=== PATIENT | male | born 1955 | race Caucasian/White ===

== ENCOUNTER 2016-09-19 08:41 | Emergency (ER) | payer OTHER ==
[2016-12-21] MEDS ORDERED: ASPIRIN CHEWABL81 MG PO (08:30)
[2016-12-21] MEDS ORDERED: VITAMIN D250000 UNIT PO (08:30)
[2016-12-21] MEDS ORDERED: MOBIC15 MG PO (08:31)
[2016-12-21] MEDS ORDERED: PROVENTIL HFA 61 INH INH (08:31)
[2016-12-21] MEDS ORDERED: LIORESAL TAB 1010 MG PO (08:33)
[2016-12-21] MEDS ORDERED: NEURONTIN 400400 MG PO (08:33)
[2016-12-21] MEDS ORDERED: NORVASC 5 MG TAB5 MG PO (08:34)
[2016-12-21] MEDS ORDERED: NORCO 7.5-3251 EACH PO (08:34)
[2016-12-21] MEDS ORDERED: VENTOLIN/PROVE0.5 ML INH (09:00)
[2016-12-21] MEDS ORDERED: SYMBICORT 160-1 INHA INH (09:01)
[2016-12-21] MEDS ORDERED: VENTOLIN HFA 66.7 GM INH (09:01)
[2016-12-21] MEDS ORDERED: PERCOCET 7.5-31 EACH PO (13:57)
== END 2016-09-19 12:05 | disposition home or self-care (01) ==
LOC: ER1 08:41
DX: S92.351A Displaced fracture of fifth metatarsal bone, right foot, initial encounter for closed fracture (principal); I10 Essential (primary) hypertension; J44.9 Chronic obstructive pulmonary disease, unspecified; F17.200 Nicotine dependence, unspecified, uncomplicated; Z99.81 Dependence on supplemental oxygen; W22.09XA Striking against other stationary object, initial encounter; X50.1XXA Overexertion from prolonged static or awkward postures, initial encounter
CPT/HCPCS: 29515; 73590; 73630; 99283

== ENCOUNTER 2020-11-04 07:35 | Emergency (ER) | payer MEDICARE, OTHER ==
[~2020-11-04 07:35] MED LIST: 24 HOUR ALLERG9.9 ML; ASPIRIN CHEWABL81 MG PO; ATROVENT-HFA12.9 GM INH; CETIRIZINE HCL10 MG PO; CYANOCOBAL1000 MCG/1 INJ; ECOTRIN81 MG PO; FLEXERIL 10 MG10 MG PO; FLONASE 0.05% N16 GM; HYDROCODON-ACE1 EAC2 PO; IBU600 MG PO; IBUPROFEN800 MG PO; KEFLEX CAP 500500 MG PO; LIORESAL TAB 1010 MG PO; MEDROL4 MG PO; MOBIC15 MG PO; NAPROSYN EC 50500 MG PO; NEURONTIN 400400 MG PO; NORCO 7.5-3251 EACH PO; NORVASC 5 MG TAB5 MG PO; PERCOCET 10-321 EACH PO; PERCOCET 7.5-31 EACH PO; PREDNISONE 20 M20 MG PO; PREDNISONE10 MG PO; PREDNISONE20 MG PO; PROVENTIL HFA 61 INH INH; PROVENTIL HFA6.7 GM INH; SYMBICORT 160-1 INHA INH; VENTOLIN HFA 66.7 GM INH; VENTOLIN/PROVE0.5 ML INH; VIBRAMYCIN100 MG PO; VITAMIN D250000 UNIT PO; Voltaren Gel 1 % TOP; ZITHROMAX250 MG PO; ZITHROMAX500 MG PO
[2020-11-04] MEDS ORDERED: MOBIC15 MG PO (10:29)
== END 2020-11-04 11:20 | disposition home or self-care (01) ==
LOC: ER1 07:35
DX: S93.601A Unspecified sprain of right foot, initial encounter (principal); S92.351D Displaced fracture of fifth metatarsal bone, right foot, subsequent encounter for fracture with routine healing; J44.9 Chronic obstructive pulmonary disease, unspecified; F17.210 Nicotine dependence, cigarettes, uncomplicated; I10 Essential (primary) hypertension; X50.1XXA Overexertion from prolonged static or awkward postures, initial encounter; X50.1XXD Overexertion from prolonged static or awkward postures, subsequent encounter
CPT/HCPCS: 73610; 73630; 99283

== ENCOUNTER 2021-05-19 13:30 | Emergency (ER) | payer MEDICARE, OTHER | END 2021-05-19 16:00 | disposition left against medical advice (07) | LOC: ER1 13:30 | DX: M54.50 Low back pain, unspecified (principal); G89.29 Other chronic pain; I11.9 Hypertensive heart disease without heart failure; J44.9 Chronic obstructive pulmonary disease, unspecified; F17.200 Nicotine dependence, unspecified, uncomplicated | CPT/HCPCS: 99282 ==

== ENCOUNTER 2021-08-08 12:54 | Emergency (ER) | payer MEDICARE, OTHER | END 2021-08-08 13:22 | disposition left against medical advice (07) | LOC: ER1 12:54 | DX: Z53.21 Procedure and treatment not carried out due to patient leaving prior to being seen by health care provider (principal); Z20.822 Contact with and (suspected) exposure to COVID-19 | CPT/HCPCS: 0240U; 93005 ==

== ENCOUNTER 2021-08-25 06:15 | Emergency (ER) | payer MEDICARE, OTHER ==
[2021-08-25 06:55] LABS: HEMOGLOBIN 15.9 gm/dl (14.0-17.5); RED BLOOD COUNT 5.16 M/UL (4.20-5.50); WHITE BLOOD COUNT 7.5 K/UL (4.5-11.0)
[2021-08-25 07:16] LABS: BUN/CREATININE RATIO 23 (0-10)
[2021-08-25] MEDS ORDERED: PREDNISONE20 MG PO (09:05)
== END 2021-08-25 09:50 | disposition home or self-care (01) ==
LOC: ER1 06:15
PROVIDERS: Student in an Organized Health Care Education/Training Program
DX: J44.9 Chronic obstructive pulmonary disease, unspecified (principal); R06.02 Shortness of breath; J96.11 Chronic respiratory failure with hypoxia; I10 Essential (primary) hypertension; F17.210 Nicotine dependence, cigarettes, uncomplicated; Z20.822 Contact with and (suspected) exposure to COVID-19
CPT/HCPCS: 0240U; 36600; 71045; 80053; 82550; 82553; 82803; 84484; 85025; 93005; 94640; 94664; 94760; 96374; 99285; J1100

== ENCOUNTER 2021-09-10 11:06 | Emergency (ER) | payer MEDICARE, OTHER ==
[2021-09-10 11:33] LABS: HEMOGLOBIN 17.5 gm/dl (14.0-17.5); RED BLOOD COUNT 5.54 M/UL (4.20-5.50); WHITE BLOOD COUNT 8.8 K/UL (4.5-11.0)
[2021-09-10 13:11] LABS: BUN/CREATININE RATIO 11 (0-10)
[2021-09-10] MEDS ORDERED: CEFDINIR300 MG PO (16:00)
[2021-09-10] MEDS ORDERED: PREDNISONE 20 M20 MG PO (16:00)
[2021-09-10] MEDS ORDERED: AZITHROMYCIN500 MG PO (16:00)
== END 2021-09-10 16:12 | disposition home or self-care (01) ==
LOC: ER1 11:06
PROVIDERS: Physician Assistant
DX: J44.0 Chronic obstructive pulmonary disease with (acute) lower respiratory infection (principal); J44.1 Chronic obstructive pulmonary disease with (acute) exacerbation; J18.9 Pneumonia, unspecified organism; M54.41 Lumbago with sciatica, right side; E78.5 Hyperlipidemia, unspecified; I10 Essential (primary) hypertension; I25.2 Old myocardial infarction; J44.9 Chronic obstructive pulmonary disease, unspecified; F17.200 Nicotine dependence, unspecified, uncomplicated; Z20.822 Contact with and (suspected) exposure to COVID-19
CPT/HCPCS: 0240U; 71045; 72131; 73502; 80053; 82550; 82553; 84484; 85025; 93005; 94640; 94664; 94760; 96374; 99285; J2930

== ENCOUNTER → 2021-09-12 | Outpatient (CLI) | payer MEDICARE, OTHER ==
[~2021-09-12] MED LIST changes: +AZITHROMYCIN500 MG PO; +CEFDINIR300 MG PO
== END ==
LOC: CT 14:42
DX: R91.8 Other nonspecific abnormal finding of lung field (principal); R63.4 Abnormal weight loss; R10.84 Generalized abdominal pain; J43.9 Emphysema, unspecified
CPT/HCPCS: 71250

== ENCOUNTER 2021-11-14 13:13 | Emergency (ER) | payer MEDICARE, OTHER ==
[2021-11-14 14:02] LABS: HEMOGLOBIN 14.4 gm/dl (14.0-17.5); RED BLOOD COUNT 4.87 M/UL (4.20-5.50)
[2021-11-14 14:27] LABS: BUN/CREATININE RATIO 17 (0-10)
== END 2021-11-14 15:18 | disposition left against medical advice (07) ==
LOC: ER1 13:13
PROVIDERS: Physician Assistant
DX: J44.1 Chronic obstructive pulmonary disease with (acute) exacerbation (principal); I10 Essential (primary) hypertension; F17.210 Nicotine dependence, cigarettes, uncomplicated
CPT/HCPCS: 36600; 70450; 70490; 71045; 80053; 82550; 82553; 82803; 83880; 84484; 85025; 93005; 94664; 94760; 96374; 99283; J2930

== ENCOUNTER 2021-11-24 08:12 | Emergency (ER) | payer MEDICARE, OTHER ==
[2021-11-24 09:53] LABS: HEMOGLOBIN 13.9 gm/dl (14.0-17.5); RED BLOOD COUNT 4.48 M/UL (4.20-5.50)
[2021-11-24 10:33] LABS: BUN/CREATININE RATIO 28 (0-10)
== END 2021-11-24 12:23 | disposition home or self-care (01) ==
LOC: ER1 08:12
PROVIDERS: Physician Assistant
DX: J38.7 Other diseases of larynx (principal); J44.9 Chronic obstructive pulmonary disease, unspecified; I11.9 Hypertensive heart disease without heart failure; E11.9 Type 2 diabetes mellitus without complications; F17.210 Nicotine dependence, cigarettes, uncomplicated
CPT/HCPCS: 71045; 80053; 82550; 82553; 84484; 85025; 93005; 94640; 94664; 99285